=== PATIENT | male | born 1960 | race Caucasian/White ===

== ENCOUNTER 2023-02-16 06:21 | Inpatient (IN) | payer OTHER, SELFPAY ==
[2023-02-09 08:03] VITALS: BMI 28.8
[2023-02-16] VITALS (14 sets, daily range): BP systolic 113–152; BP diastolic 71–95; PULSE 22–101; RESP 11–18; TEMP 36.2–37.6; O2SAT 94–147; BMI 28.8
[2023-02-16] MEDS: ACETAMINOPHEN 325 MG TABLET 975 MG PO (07:06)
[2023-02-16] MEDS: LACTATED RINGERS 1,000 ML 42 ML IV (07:06)
--- NOTE | 2023-02-16 07:12 | SUR.OPER ---
Prone on spine table, head in foam head support, padded chest and pelvic supports, gel pad at knees, lower legs supported by pillows; nipples, genitalia and toes free of pressure, arms secured on foam padded arm boards at <90 degrees abduction. Tape over blanket at thigh secured to table.
--- NOTE | 2023-02-16 07:45 | PM.PREOP ---
Pre-operative Note Interval Note History & Physical reviewed/Exam performed by Physician: Yes Changes to H&P: No
[2023-02-16] MEDS: CEFAZOLIN 2 GM/100 ML PREMIX 100 ML IV ×3 (08:10→23:48)
[2023-02-16] MEDS: BUPIVACAINE 0.25% (PF) 60 ML, EPINEPHrine 0.15 MG INJ (11:22)
[2023-02-16] MEDS: BUPIVACAINE LIPOSOME 266 MG/20 ML VIAL INJ (11:22)
--- NOTE | 2023-02-16 11:43 | DI.RAD.S_ITS ---
PROCEDURE: XR LUMBAR SPINE 2-3V INDICATIONS: L4-5, L5-S1 TLIF ROBOT TECHNIQUE: 2 intraoperative fluoroscopic images of the spine COMPARISON: None. FINDINGS: Two intraoperative fluoroscopic images of the spine demonstrate L4-S1 posterior fusion with bilateral transpedicular screws and interbody disc spacers at L4-5 and L5-S1. Please see operative report for details. IMPRESSION: Intraoperative fluoroscopic images of posterior fusion hardware of the lumbar spine. Please see operative report for details. Dictated by: Yared Norton M.D. on 02/16/2023 at 11:55 Approved by: Yared Norton M.D. on 02/16/2023 at 11:56
--- NOTE | 2023-02-16 11:43 | PM.OP.1 ---
Operative Date/Time/Diagnoses Date of procedure: 02/16/23 Time of procedure: 07:40 Pre-op diagnosis: 1. L4-5, L5-S1 spinal stenosis with neurogenic claudication 2. L4-5, L5-S1 epidural lipomatosis 3. L4-5, L5-S1 foraminal stenosis Post-op diagnosis: same Procedure & Clinicians Procedure: 1. L4-5, L5-S1 Postero-lateral and posterior interbody fusion 2. L4-5, L5-S1 interbody cage placement. 3. L4-5, L5-S1 decompressive laminectomy with bilateral facetecomies 4. L4-5, L5-S1 Posterior segmental instrumentation 5. Wallace of bone marrow from iliac crest 6. Utilization of microsurgical technique and operating microscope 7. Utilization of robotic assisted navigation Same procedure as scheduled: Yes Indications: Patient has been having chronic back pain and worsening lumbar radiculopathy and symptoms of neurogenic claudication. Patient has severe central and neural foraminal stenosis with radiculopathy as well as symptoms of neurogenic claudication. Patient failed multiple conservative management with worsening pain weakness and numbness in his lower extremity. Patient has been having difficulty performing activity of daily living. After discussing risks benefits of treatment options, patient elected proceed with surgery. Surgeon: Carmelo Osorio Chief Vendor Quality: Kati Issa Click Yes if Unassisted: No Anesthesia Type: General Operative Notes Closure Type: primary Specimen(s): none sent Prosthetic devices, grafts, tissues, transplants, or devices: Globus CREO MIS screws, Rise cages Applied: catheter Estimated Blood Loss (mL): 150 Blood products transfused: none Procedure in detail: Patient was seen in the preoperative area. Risks and benefits of the surgery was discussed with the patient. Informed consent was obtained from the patient and placed in the chart. Surgical site was marked. Patient was taken to the operative room. General anesthesia was administered. Prophylactic antibiotic was given to the patient less than 30 min before the incision was made. Patient was placed into a prone position on the [place] table. Patient's back was then prepped and draped in the sterile fashion. Time-out was performed at this time. After patient was prepped and draped, patient's PSIS was palpated and marked bilaterally. Small 1 cm incision was made over the PSIS for placement of the reference probes. Two trocar was placed into the PSIS 1 on each side. The reference probe was attached to the trocar of the reference apparatus. At this time the C-arm imaging was used to confirm AP and lateral of L4-L5, L5-S1 vertebrae and merged the C-arm imaging using the RecruitTalk robotic navigation system with the CT of the lumbar spine. After successful merging was completed and confirmed, skin marker was used to ghulam out the skin incision using the RecruitTalk robotic arm. Bilateral incision was made at this time. Pre templated trajectory was used and guided using the Rec[employer]Talk robotic navigation system for bilateral L4, L5, S1 pedicle screw placement. This was done by using the robotic arm to guide the high-speed bur to make a cortical entry point. Next a drill was placed also using the robotic arm and guided using the navigation system drilling partially through bilateral L4, L5 and S1 pedicles. Next L4, L5, S1 pedicle screws it was pre templated and measured was placed onto the power corporate driver and inserted into the pedicles bilaterally. After all 6 screws were placed C-arm imaging was taken of both AP and lateral to confirm the placement. Excellent placement of the screws were confirmed and a matched precisely with the pre planned screw placement using the navigation system. MARs retractor was inserted using CyberPatrolivation guidence. Globus MARS retractors was placed inside the incision and docked onto the L4 and L5 lamina. Using microsurgical technique and operating microscope, a L4, L5 laminectomy and L4-5, L5-S1 facetectomy was performed using a Kerrison rongeur. The laminectomy and facetectomy was performed in order to decompress patient's cauda equina as well as the nerve roots exiting at the L4-5, L5-S1 level. Patient was found have severe lateral recess and neural foramen stenosis which was fully decompressed after the laminectomy facetectomy. More than 75% of the facets were removed during the process of decompression rendering L4-5, L5-S1 level grossly unstable and required a fusion procedure at the same time. The disc space at L4-5, L5-S1 was identified, and a total diskectomy was performed at L4-5, L5-S1 level. The endplates were decorticated using a rasp and shaver. The total diskectomy and decortication was performed at L4-5, L5-S1 level in order to to accomplish a L4-5, L5-S1 fusion. The local bone from the laminectomy and facetectomy was saved for local bone grafting. After the total diskectomy and decortication was completed, DBM bone graft material was combined with local bone that was harvested earlier. Patient was also found to have significant amount of epidural lipomatosis at both L4-5 and L5-S1 level further contributing to the severe central stenosis. Epidural lipomatosis was carefully resected to further decompress the epidural space. At this time, a separate skin is incision was made over the iliac crest. A Jamshidi needle was inserted into the iliac crest through a separate skin incision. 5 cc of bone marrow aspiration was obtained through the separate skin incision using a Jamshidi needle from the iliac crest. The bone marrow aspiration was combined with local bone and the DBM bone grafting material. The bone grafting material was placed into the L4-5, L5-S1 interbody space along with a expandable cage. The cage was expanded to its maximum height using the torque limiting screwdriver. The disc preparation as well as the cage insertion were also performed under navigation guidance. After the cage was placed, AP and lateral C-arm imaging was taken to confirm placement of the cage and excellent position was confirmed. Globus MARS retractor was inserted and docked onto the L4-5, L5-S1 posterolateral gutter on the right side. Using the power drill, posterior-lateral decortication was performed at L4-5, L5-S1 level until bleeding cortical bone was identified. The remaining bone grafting material was placed into the L4-5, L5-S1 posterior lateral gutter he order to accomplish posterolateral fusion at the L4-5, L5-S1 level. At this time the tulips were attached to the L4, L5, S1 pedicle screw shanks. After measuring the length of the rods, they were inserted into the tulips of the pedicle screws and locked in place using locking caps and torque limiting screwdriver bilaterally. Total 6 caps and 2 titanium rods was used in order to complete the posterior instrumentation construct. After all the hardware was placed, and confirmed with AP and lateral C-arm imaging, the wound was then irrigated with sterile normal saline and packed with Ray-Ted gauze for 3 min to accomplish hemostasis. After the gauze was removed the deep fascia was closed with #1 Vicryl suture. The subcutaneous layer was closed with 2-0 Vicryl. The skin was closed with skin pj. Patient tolerated the procedure well. There were no complications. Neuro monitoring system was used to monitor patient's neurologic status throughout entire procedure. There was no disturbance of the neural monitoring signals throughout the case. The Operation could not have been safely performed without compromising the technical result or length of the procedure, without the assistance of a skilled certified physician's assistant. The certified physician's assistant was medically necessary for proper positioning, retraction and manipulation of instruments, proper exposure, surgical preparation, and manipulation of tissue. Complications: none Post-operative Condition: stable Disposition: PACU Plan for aftercare: Admit to inpatient hospital
[2023-02-16] MEDS: ONDANSETRON 4 MG/2 ML INJ IV (11:58)
[2023-02-16] MEDS: OXYCODONE IR 5 MG TABLET PO (11:58)
[2023-02-16] MEDS: hydrOXYzine 50 MG/ML INJ 25 MG IM (11:59)
[2023-02-16] MEDS: HYDROMORPHONE 1 MG INJ IV ×2 (11:59→12:09)
[2023-02-16] MEDS: LACTATED RINGERS 1,000 ML 125 ML IV ×2 (12:47→22:30)
--- NOTE | 2023-02-16 13:40 | PT.IIE ---
Current Diagnoses Spondylolisthesis, lumbar region (02/16/23) Spinal stenosis, lumbar region with neurogenic claudication (02/16/23) Surgery Performed Operation Date: 02/16/23 07:45 Actual Procedures p L4-5, L5-S1 TLIF with posterior instrumentation-Robot - Carmelo Osroio MD Surgical History (Last Updated 02/09/23 @ 09:17 by Cici Young, RN) H/O vasectomy (1995) History of carpal tunnel surgery of left wrist (2012) History of surgery (~1988) Hx of arthroscopy of right knee Hx of colonoscopy (12/2022) Hx of foot surgery Hx of repair of right rotator cuff (2014) Hx of right knee surgery (1988) Hx of thumb surgery (1993) S/P epidural steroid injection Medical History (Last Updated 02/09/23 @ 09:23 by Cici Young RN) BCC (basal cell carcinoma) (2020) Bilateral cataracts Fatty liver History of COVID-19 (03/2022) HLD (hyperlipidemia) HTN (hypertension) ANTHONY on CPAP Right carpal tunnel syndrome Sciatica Physical Therapy Inpatient Evaluation/Re-Eval M1 PT/OT-IP Prior Functional Status Start: 02/16/23 14:29 Freq: NEEDED Status: Active Protocol: Document 02/16/23 13:40 AB (Rec: 02/16/23 14:43 AB [id number]) Medical Review Prior Functional Status Medical History Reviewed Yes Communication able to make needs known Mobility and Gait pt stated that he is independent with all mobilities and ambulation without AD Social History Household Members spouse Living Arrangements Apartment/Condo Number of Floors (Floors) One Floor Number of Stairs To Enter/Railing? 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 PT-IP Current Condition Start: 02/16/23 14:29 Freq: NEEDED Status: Active Protocol: Document 02/16/23 13:40 AB (Rec: 02/16/23 14:43 AB [id number]) Physical Therapy Current Condition Current Condition Evaluation Date 02/16/23 Treatment Diagnosis s/p L4-5, L5S1 TLIF; difficulty in walking Onset Date 02/16/23 M3 PT-IP Subjective Start: 02/16/23 14:29 Freq: NEEDED Status: Active Protocol: Document 02/16/23 13:40 AB (Rec: 02/16/23 14:43 AB [id number]) Subjective Physical Therapy Visit Type Type Initial Evaluation Visit Start Time 13:40 Visit Stop Time 14:25 Total Visit Minutes 45 Number of FRONT COUNTER CLERK Visits 0 Physical Therapy Visit Comments Patient Comments agreeable to do PT Therapy Pain Assessment Pain When Pain Assessed At Rest Pain Present Pain Present Pain Reported Location lower back Intensity 4 Scale Used Numeric (0 - 10) Pain Management Techniques Distraction,Modification of Treatment,Re-positioning M4 PT-IP Mobility and Gait Start: 02/16/23 14:29 Freq: NEEDED Status: Active Protocol: Document 02/16/23 13:40 AB (Rec: 02/16/23 14:43 AB [id number]) PT-Bed Mobility Assessment Rolling Type of Rolling Log Rolling Level of Assist Standby Assistance Supine to Sit Supine to Sit Contact Guard Assistance Sit to Supine Sit to Supine Minimal Assistance,1 Person Assistance PT-Transfer Assessment Sit to and From Stand Sit to and from Stand Moderate Assistance,Maximum Assistance,1 Person Assistance ,Use of Upper Extremities Equipment Transfer Assistive Device Gait Belt,Front Wheeled Walker Orthotic/Prosthetic Devices or Brace: No Transfer Ability Level of Assist Moderate Assistance,Maximum Assistance,1 Person Assistance ,Use of Upper Extremities Comments Mobility Comments pt supine in bed. spouse in room with pt. BP in supine: 133/78. pt provided with post -op folder and reviewed contents. educated on back precautions and log roll bed mobility. pt completed supine to sit CGA and cues for techniques. pt able to sit on EOB SBA. c/o feeling foggy /groggy. Bp checked in sittin/80. completed sit to stand max A and max cues. ambulated in room using fWW ~ 18 ft mod to max A and max cues. presents with decrease LE elevation during ambulation. pt sat back on EOB and requested to go back to bed. educated pt on sit<> stand techniques. completed sit <>stand from EOB mod to max A and max cues. assisted pt back to bed. completed sit to supine log roll min A and max cues. positioned pt in bed. call light and table placed within reach. caregiver training set up for tomorrow at 9 am. Gait Assessment Gait Gait Assistance Required: Moderate Assistance,Maximum Assistance,1 Person Assist Distance (Feet) 18 Able to Maintain Weight Bearing Status Yes During Gait Assistive Devices Assistive Device Gait Belt,Front Wheeled Walker Orthotic/Prosthetic Devices or Brace: No Gait Deviations General Gait Pattern Decreased Stride Length, Decreased Feet Clearance,Step- to Gait Factors Limiting Gait Function Factors Limiting Gait Function Decreased Activity Tolerance, Decreased Strength,Limited Range of Motion,Pain,Poor Balance,Poor Safety Awareness PT-Balance Assessment Sitting Balance and Reactions Static Sitting Balance Ability Good Dynamic Sitting Balance Ability Good Standing Balance and Reactions Static Standing Balance Ability Fair Dynamic Standing Balance Ability Fair Device Used FWW M5 PT-IP Objective Assessments Start: 02/16/23 14:29 Freq: NEEDED Status: Active Protocol: Document 02/16/23 13:40 AB (Rec: 02/16/23 14:43 AB [id number]) Orientation Orientation/Cognition Level of Alertness Alert Orientation Name,Place,Situation Language Function Ability No Deficits Noted Safety Awareness Decreased Safety Awareness Memory Description Short Term Impaired Gross Range of Motion Lower Extremity ROM Assessment Within Functional Limits Strength Lower Extremity Strength Assessment Within Functional Limits Muscle Tone Muscle Tone WNL Yes M6 PT-IP Treatment Start: 02/16/23 14:29 Freq: NEEDED Status: Active Protocol: Document 02/16/23 13:40 AB (Rec: 02/16/23 14:43 AB [id number]) Physical Therapy Treatment Education Education Provided Precautions,Weight Bearing Status,Post-Op Packet,Safety M7 PT-IP Assessment and Plan Start: 02/16/23 14:29 Freq: NEEDED Status: Active Protocol: Document 02/16/23 13:40 AB (Rec: 02/16/23 14:43 AB [id number]) PT Summary Assessment and Plan Potential Rehabilitation Potential Fair Status of Condition at Evaluation Evolving Summary Impairments Pain,ROM,Strength,Balance, Coordination,Sensation,Tone, Cognition,Bed Mobility, Transfers,Gait,Activity Tolerance Assessment Summary pt is a 62 y/o M who underwent L4-5, L5S1 TLIF POD 0. pt requiring min A with bed mobility and mod to max A with all mobilities and ambulation using FWW. caregiver training set up for tomorrow at 9am. pt plans to go home and spouse to assist him. pt also has to complete stair climbing prior to d/c as pt has 5 steps to enter the house . will continue to assess progress. Goals Bed Mobility Goal Independent Transfer Goal Independent,Front Wheeled Walker Gait Goal Independent,Front Wheel Walker Gait Distance 200 Other Goals up/down 5 steps 1 rail SBA Days to Meet Goals 5 Frequency of Treatment Frequency Of Treatment Twice a Day Treatment Plan Physical Therapy Treatment Plan Bed Mobility Training,Transfer Training,Gait Training, Therapeutic Exercise,Balance Retraining,Post Op Education, Discharge Planning,Hot or Cold Pack,Neuromuscular Re-ed, Coordination Retraining,Manual Therapy Other Recommendations and Next Treatment caregiver training 02/17 @ 9 Focus am Precautions Lumbar Precautions Log Roll,No Twisting,Limit Bending,Lifting Restriction of 10 lbs,Gait Belt above Incisional Area Recommendations To Nursing Amount of Assist Needed 1 Person Assist Discharge Recommendations PT Discharge Recommendations Home with Assistance Transportation Needs at Discharge Private Vehicle
--- NOTE | 2023-02-16 16:55 | OT.IP.EVAL ---
Current Diagnoses Spondylolisthesis, lumbar region (02/16/23) Spinal stenosis, lumbar region with neurogenic claudication (02/16/23) Surgery Performed Operation Date: 02/16/23 07:45 Actual Procedures p L4-5, L5-S1 TLIF with posterior instrumentation-Robot - Carmelo Osorio MD Past Medical History (Last Updated 02/09/23 @ 09:23 by Cici Young, RN) BCC (basal cell carcinoma) (2020) Bilateral cataracts Fatty liver History of COVID-19 (03/2022) HLD (hyperlipidemia) HTN (hypertension) ANTHONY on CPAP Right carpal tunnel syndrome Sciatica Surgical History (Last Updated 02/09/23 @ 09:17 by Cici Young RN) H/O vasectomy (1995) History of carpal tunnel surgery of left wrist (2012) History of surgery (~1988) Hx of arthroscopy of right knee Hx of colonoscopy (12/2022) Hx of foot surgery Hx of repair of right rotator cuff (2014) Hx of right knee surgery (1988) Hx of thumb surgery (1993) S/P epidural steroid injection Occupational Therapy Inpatient Evaluation/Re-Eval M1 PT/OT-IP Prior Functional Status Start: 02/16/23 16:56 Freq: NEEDED Status: Active Protocol: Document 02/16/23 16:57 [facility] (Rec: 02/16/23 17:03 [facility] [id number]) Medical Review Prior Functional Status Medical History Reviewed Yes Communication able to make needs known Mobility and Gait pt stated that he is independent with all mobilities and ambulation without AD Activities of Daily Living and IADL's Independent with ADL and IADl but had pain. Social History Household Members spouse Living Arrangements Apartment/Condo Number of Floors (Floors) One Floor Number of Stairs To Enter/Railing? 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 Current Condition Start: 02/16/23 16:56 Freq: Status: Active Protocol: Document 02/16/23 16:57 [facility] (Rec: 02/16/23 17:03 [facility] [id number]) Occupational Therapy Current Condition Current Condition Evaluation Date 02/16/23 Treatment Diagnosis S/P L4-5, L5-S1 TLIF Post Operative Precautions Lumbar Precautions Log Roll,No Twisting,Limit Bending,Lifting Restriction of 10 lbs,Gait Belt above Incisional Area M3 OT- IP Subjective and Pain Start: 02/16/23 16:56 Freq: Status: Active Protocol: Document 02/16/23 16:57 [facility] (Rec: 02/16/23 17:03 [facility] [id number]) OT- Subjective Occupational Therapy Visit Type Type Initial Evaluation Visit Start Time 16:30 Visit Stop Time 16:55 Total Visit Minutes 25 Occupational Therapy Visit Comments Patient Comments Pt agreed to get up. Patient/Caregiver Goals To go home. OT Pain Assessment Pain When Pain Assessed During Mobility Pain Present Pain Present Pain Reported Location lower back Intensity 5 M4 OT- IP ADL's Start: 02/16/23 16:56 Freq: Status: Active Protocol: Document 02/16/23 16:57 [facility] (Rec: 02/16/23 17:03 [facility] [id number]) OT LPL-Devv-[id number] General Evaluation Self-Feeding Ability Independent OT ADL-Grooming General Evaluation Grooming Ability Independent OT ADL-Oral Care Comments Oral Care Comments Educated to spit into a cup or hinge at his hips to best follow his back precautions. OT ADL-Dressing Comments OT Dressing Comments Pt aware of LB dressing equipment and just have his assist for now. OT ADL-Toileting General Evaluation Toileting Ability Total Assistance Comments OT Toileting Comments Rivera in place. OT ADL-Bathing Comments OT Bathing Comments Pt would benefit from a shower chair and HHPS. M5 OT- IP IADL's Start: 02/16/23 16:56 Freq: Status: Active Protocol: Document 02/16/23 16:57 [facility] (Rec: 02/16/23 17:03 [facility] [id number]) OT-Instrumental Activities of Daily Living Deficits IADL Deficits Identified Deficits Home Safety Awareness Awareness of Need for Assistance at Home Good Awareness Ability to Problem Solve Emergency Able to Problem Solve Situations Home Safety Comments Pt's to assist for his needs. M6 OT- IP Functional Cognition Start: 02/16/23 16:56 Freq: Status: Active Protocol: Document 02/16/23 16:57 [facility] (Rec: 02/16/23 17:03 [facility] [id number]) Cognitive Factors Limiting Selfcare Function Cognitive Ability Level of Alertness Alert Patient Orientation Name,Age,Birthday,Month,Date, Year,Day of Week,Place, Situation Attention Span Ability Capable of Focused Attention, Capable of Sustained Attention Ability to Follow Commands Able to Follow Multi-Step Commands Cognitive Comments Cognitive Assessment Comments Intact OT- Vision and Hearing OT- Hearing Assessment OT- Hearing Assessment WFL M7 OT- IP Mobility and Balance Start: 02/16/23 16:56 Freq: Status: Active Protocol: Document 02/16/23 16:57 [facility] (Rec: 02/16/23 17:03 [facility] [id number]) OT- Bed Mobility Assessment Supine to Sit Supine to Sit Assist Standby Assistance OT-Transfer Assessment Sit to and From Stand Sit to and from Stand Standby Assistance Technique Transfer Destination Bed,Chair Devices Transfer Assistive Devices Gait Belt,Front Wheeled Walker OT- Balance Assessment Sitting Balance and Reactions Static Sitting Balance Ability Normal Dynamic Sitting Balance Ability Good Standing Balance and Reactions Static Standing Balance Ability Good Dynamic Standing Balance Ability Good M9 OT- IP Assessment and Plan Start: 02/16/23 16:56 Freq: Status: Active Protocol: Document 02/16/23 16:57 [facility] (Rec: 02/16/23 17:03 [facility] [id number]) OT Summary Assessment and Plan Potential Rehabilitation Potential Excellent Analytic Complexity at Evaluation Low Summary OT Impairments Pain,Balance,Functional Mobility,Dressing,Toileting, Bathing,Toilet Transfers, Shower Transfers Progress Towards Goals Progressing Toward Goals Assessment Summary Py low complexity and main barriers are pain, showering and will need assist for LB dressing form his . Pt to go home when medically stable. Suggested use of urinal at home and his able to hold the FWW in place next to the bed to assist to get up if needed. Goals Dressing Goal Independent Toileting Goal Independent Bathing Goal Independent Toilet Transfer Goal Independent Shower Transfer Goal Independent Days to Meet Goals 5 Frequency of Treatment Frequency Of Treatment Once a Day Treatment Plan OT Treatment Plan ADL Training,Functional Mobility,Patient/Family Education,Discharge Planning Discharge Recommendations OT Discharge Recommendations Home with Assistance Home Equipment Needs Shower chair, HHSP Transportation Needs at Discharge Private Vehicle
[2023-02-16] MEDS: ACETAMINOPHEN 325 MG TABLET 650 MG PO ×2 (16:56→22:33)
[2023-02-16] MEDS: TAMSULOSIN 0.4 MG CAPSULE PO (20:09)
[2023-02-16] MEDS: ZOLPIDEM 5 MG TABLET PO (20:09)
[2023-02-16] MEDS: DOCUSATE 100 MG CAPSULE PO (20:09)
[2023-02-16] MEDS: ATORVASTATIN 20 MG TABLET 40 MG PO (20:09)
[2023-02-16] MEDS: OXYCODONE IR 10 MG TABLET PO (20:09)
[2023-02-16] MEDS: SENNOSIDES 8.6 MG TABLET 17.2 MG PO (20:09)
[2023-02-17 00:49] VITALS: BP 116/68; PULSE 68; RESP 18; TEMP 37; O2SAT 100
[2023-02-17 04:15] VITALS: BP 119/64; PULSE 72; RESP 18; TEMP 37.8; O2SAT 100
[2023-02-17] MEDS: OXYCODONE IR 10 MG TABLET PO ×3 (04:27→11:15)
[2023-02-17] MEDS: ACETAMINOPHEN 325 MG TABLET 650 MG PO ×2 (04:27→10:56)
[2023-02-17 05:13] LABS: Hematocrit 31.1 % (41-53); Hemoglobin 11.2 g/dL (13.5-17.5)
[2023-02-17] MEDS: LACTATED RINGERS 1,000 ML 125 ML IV (06:52)
[2023-02-17 07:00] VITALS: TEMP 37.6
[2023-02-17] MEDS: polyethylene glycoL 3350 17 GM POWD.PACK PO (08:33)
[2023-02-17] MEDS: lisinopriL 20 MG TABLET 40 MG PO (08:33)
[2023-02-17] MEDS: DOCUSATE 100 MG CAPSULE PO (08:33)
[2023-02-17 08:41] VITALS: BP 126/68; PULSE 66; RESP 16; TEMP 37.2; O2SAT 99
--- NOTE | 2023-02-17 09:00 | PT.IPTN ---
Current Diagnoses Spondylolisthesis, lumbar region (02/16/23) Spinal stenosis, lumbar region with neurogenic claudication (02/16/23) Surgery Performed Operation Date: 02/16/23 07:45 Actual Procedures p L4-5, L5-S1 TLIF with posterior instrumentation-Robot - Carmelo Osorio MD Physical Therapy Treatment Note M2 PT-IP Current Condition Start: 02/16/23 14:29 Freq: NEEDED Status: Active Protocol: Document 02/16/23 13:40 AB (Rec: 02/16/23 14:43 AB [id number]) Physical Therapy Current Condition Current Condition Evaluation Date 02/16/23 Treatment Diagnosis s/p L4-5, L5S1 TLIF; difficulty in walking Onset Date 02/16/23 M3 PT-IP Subjective Start: 02/16/23 14:29 Freq: NEEDED Status: Active Protocol: Document 02/17/23 09:20 TS (Rec: 02/17/23 09:34 TS [id number]) Subjective Physical Therapy Visit Type Type Treatment Note Visit Start Time 09:00 Visit Stop Time 09:18 Total Visit Minutes 18 Number of WAREHOUSE INCENTIVE SELECTOR Visits 1 Physical Therapy Visit Comments Patient Comments Pt found resting in chair, spouse present for caregiver training, reports some pain in LLE and numbness in RLE, pt agreeable to PT. Therapy Pain Assessment Pain When Pain Assessed During Mobility Pain Present Pain Present Pain Reported M4 PT-IP Mobility and Gait Start: 02/16/23 14:29 Freq: NEEDED Status: Active Protocol: Document 02/17/23 09:20 TS (Rec: 02/17/23 09:34 TS [id number]) PT-Bed Mobility Assessment Rolling Type of Rolling Log Rolling Level of Assist Standby Assistance Sit to Supine Sit to Supine Contact Guard Assistance,1 Person Assistance PT-Transfer Assessment Sit to and From Stand Sit to and from Stand Standby Assistance,Use of Upper Extremities Equipment Transfer Assistive Device Gait Belt,Front Wheeled Walker Orthotic/Prosthetic Devices or Brace: No Comments Mobility Comments Spouse instructed in and performed donning of gait belt prior to mobility. He recalled 3/3 spinal precautions. He performed sit to stand SBA with FWW, demonstrated good standing balance with no retroleaning. He ambulated in hallway ~200' SBA, reported some weakness, had no buckling or LOB. He performed stairs x6 CGA step to step with B handrails, spouse instructed in and peformed step sequencing with pt. He ambulated back to room, sit to supine into bed CGA for LEs, demonstrated good carryove of logroll sequencing . Pt was left in bed all needs met, spouse in room, RN notified. Gait Assessment Gait Gait Assistance Required: Standby Assistance Distance (Feet) 200 Able to Maintain Weight Bearing Status Yes During Gait Assistive Devices Assistive Device Gait Belt,Front Wheeled Walker Orthotic/Prosthetic Devices or Brace: No Gait Deviations General Gait Pattern Decreased Stride Length, Decreased Feet Clearance,Step- to Gait Factors Limiting Gait Function Factors Limiting Gait Function Decreased Activity Tolerance, Decreased Strength,Limited Range of Motion,Pain,Poor Balance,Poor Safety Awareness Comments Gait Comments See mobility comments. Stair Climbing Assessment Evaluation Level of Assist On Stairs Contact Guard Assistance,1 Person Assistance Devices Stair Climbing Assistive Devices Right Railing Technique/Endurance Stair Climbing Direction Ascend and Descend Stair Climbing Technique Step to Step Number of Steps Climbed 6 Comments Stair Climbing Comments See mobility comments. PT-Balance Assessment Sitting Balance and Reactions Static Sitting Balance Ability Good Dynamic Sitting Balance Ability Good Standing Balance and Reactions Static Standing Balance Ability Good Dynamic Standing Balance Ability Good Device Used FWW M5 PT-IP Objective Assessments Start: 02/16/23 14:29 Freq: NEEDED Status: Active Protocol: Document 02/16/23 13:40 AB (Rec: 02/16/23 14:43 AB [id number]) Orientation Orientation/Cognition Level of Alertness Alert Orientation Name,Place,Situation Language Function Ability No Deficits Noted Safety Awareness Decreased Safety Awareness Memory Description Short Term Impaired Gross Range of Motion Lower Extremity ROM Assessment Within Functional Limits Strength Lower Extremity Strength Assessment Within Functional Limits Muscle Tone Muscle Tone WNL Yes M6 PT-IP Treatment Start: 02/16/23 14:29 Freq: NEEDED Status: Active Protocol: Document 02/17/23 09:20 TS (Rec: 02/17/23 09:34 TS [id number]) Physical Therapy Treatment Education Education Provided Precautions,Weight Bearing Status,Post-Op Packet,Safety M7 PT-IP Assessment and Plan Start: 02/16/23 14:29 Freq: NEEDED Status: Active Protocol: Document 02/17/23 09:20 TS (Rec: 02/17/23 09:34 TS [id number]) PT Summary Assessment and Plan Potential Rehabilitation Potential Good Summary Impairments Pain,ROM,Strength,Balance, Coordination,Sensation,Tone, Cognition,Bed Mobility, Transfers,Gait,Activity Tolerance Progress Towards Goals Progressing Toward Goals Assessment Summary Mikael is making good progress with his mobility this session . He progressed his sit to stand to SBA with BUE support and use of FWW. He progressed his gait to SBA with FWW ~200' with no buckling or LOB. He performed stairs with spouse CGA x6 with R rail. Spouse was instructed in and performed donning of gait belt, stair training and handplacement on gait belt for mobility. PT is recommending return home with assist from spouse. Goals Bed Mobility Goal Independent Transfer Goal Independent,Front Wheeled Walker Gait Goal Independent,Front Wheel Walker Gait Distance 200 Other Goals up/down 5 steps 1 rail SBA Days to Meet Goals 5 Frequency of Treatment Frequency Of Treatment Twice a Day Treatment Plan Physical Therapy Treatment Plan Bed Mobility Training,Transfer Training,Gait Training, Therapeutic Exercise,Balance Retraining,Post Op Education, Discharge Planning,Hot or Cold Pack,Neuromuscular Re-ed, Coordination Retraining,Manual Therapy Precautions Lumbar Precautions Log Roll,No Twisting,Limit Bending,Lifting Restriction of 10 lbs,Gait Belt above Incisional Area Recommendations To Nursing Amount of Assist Needed 1 Person Assist Discharge Recommendations PT Discharge Recommendations Home with Assistance Transportation Needs at Discharge Private Vehicle
--- NOTE | 2023-02-17 09:32 | PM.DS.1 ---
History of Present Illness History of Present Illness Date Patient Seen: 02/17/23 Time Patient Seen: 08:45 Chief complaint: Translam Intrbody Fus./Laminotomy -Robot 02/16 Narrative: Date of procedure: 02/16/23 Time of procedure: 07:40 Pre-op diagnosis: 1. L4-5, L5-S1 spinal stenosis with neurogenic claudication 2. L4-5, L5-S1 epidural lipomatosis 3. L4-5, L5-S1 foraminal stenosis Post-op diagnosis: same Procedure & Clinicians Procedure: 1. L4-5, L5-S1 Postero-lateral and posterior interbody fusion 2. L4-5, L5-S1 interbody cage placement. 3. L4-5, L5-S1 decompressive laminectomy with bilateral facetecomies 4. L4-5, L5-S1 Posterior segmental instrumentation 5. Mckinney of bone marrow from iliac crest 6. Utilization of microsurgical technique and operating microscope 7. Utilization of robotic assisted navigation Same procedure as scheduled: Yes Indications: Patient has been having chronic back pain and worsening lumbar radiculopathy and symptoms of neurogenic claudication. Patient has severe central and neural foraminal stenosis with radiculopathy as well as symptoms of neurogenic claudication. Patient failed multiple conservative management with worsening pain weakness and numbness in his lower extremity. Patient has been having difficulty performing activity of daily living. After discussing risks benefits of treatment options, patient elected proceed with surgery. Surgeon: Carmelo Osorio Human Resources Compensation Analyst: Kati Issa Click Yes if Unassisted: No Anesthesia Type: General Discharge Providers Provider Date of admission: 02/16/23 06:21 Discharge Date: 02/17/23 Primary care physician: Ciaran Mcgraw MD Consults: 02/16/23 12:24 Consult to Occupational Therapy Evaluate & Treat Comment: Physician Instructions: Evaluate and treat Consult to Physical Therapy Evaluate & Treat Comment: Physician Instructions: Evaluate and Treat Discharge provider: Raffi Lopez PA-C Summary Hospital Course Discharge Diagnosis: 1. L4-5, L5-S1 spinal stenosis with neurogenic claudication 2. L4-5, L5-S1 epidural lipomatosis 3. L4-5, L5-S1 foraminal stenosis 4. Post-Op Spinal fusion Status at Discharge Cognitive/behavioral status at discharge: oriented Functional status at discharge: uses cane/walker Exam Vital Signs (past 8 hours): - 02/17/23 04:15 02/17/23 07:00 02/17/23 08:41 Temperature 100.0 F H 99.6 F 99 F Pulse Rate 72 66 Respiratory Rate 18 16 Blood Pressure 119/64 126/68 Pulse Oximetry 100 99 Oxygen Flow Rate 0 0 Oxygen Delivery Method Room Air Oxygen Flow Rate 0 Const General: cooperative and comfortable Nutritional Appearance: average body habitus Orientation: alert and oriented x3 Resp Effort & Inspection: normal respiratory effort and able to speak in complete sentences Extrem Other: 5/5 strength in hip flexors, quadriceps, hamstrings, DF, PF, EHL bilaterally. Sensation to light touch intact throughout BLE. Calves soft, compressible, nontender. Complaints of decreased sensation along the L4 dermatome of right leg. Increased pain and tingling down left leg, but no loss of sensation Objective Labs 02/17/23 04:57 Labs: Laboratory Results - last 24 hr 02/17/23 04:57 Hgb 11.2 L Hct 31.1 L PFSH Medical History (Updated 02/09/23 @ 09:23 by Cici Young RN) History of COVID-19 (03/2022) BCC (basal cell carcinoma) (2020) Fatty liver HLD (hyperlipidemia) HTN (hypertension) ANTHONY on CPAP Bilateral cataracts Right carpal tunnel syndrome Sciatica Surgical History (Updated 02/09/23 @ 09:17 by Cici Young RN) History of surgery (~1988) S/P epidural steroid injection Hx of foot surgery Hx of arthroscopy of right knee Hx of right knee surgery (1988) Hx of thumb surgery (1993) History of carpal tunnel surgery of left wrist (2012) Hx of repair of right rotator cuff (2014) H/O vasectomy (1995) Hx of colonoscopy (12/2022) Social History household members: spouse Smoking Status: Former smoker alcohol intake: current Discharge Assessment & Plan Assessment and Plan Assessment: S/p Lumbar Fusion Plan of Treatment: Discharge home pending PT approval. Follow up in office on 02/27/2023 Discharge Plan Discharge Plan Patient Disposition: Home Discharge orders & Medications Prescriptions: New acetaminophen 325 mg tablet 650 mg PO Q6H PRN (Reason: pain (scale score 1-3)) Qty: 60 0RF docusate sodium 100 mg capsule 100 mg PO BID Qty: 20 0RF oxycodone 10 mg tablet 10 mg PO Q4H PRN (Reason: pain (scale score 7-10)) Qty: 40 0RF Continued tamsulosin 0.4 mg Capsule 0.4 mg PO BEDTIME lisinopril 40 mg Tablet 40 mg PO DAILY rosuvastatin 20 mg Tablet 20 mg PO BEDTIME zolpidem 12.5 mg Tablet,Ext Release Multiphase 12.5 mg PO BEDTIME Discontinued acetaminophen 650 mg Tablet Extended Release 1,300 mg PO Q8H ibuprofen 200 mg Tablet 800 mg PO BID PRN (Reason: Pain) Follow up/Referrals: Ciaran Mcgraw MD [Primary Care Provider] - Carmelo Osorio MD [Physician] - 2 Weeks Diet/Activity/Treatments Diet: Diet as Tolerated Activity: No deep bending or twisting at the waist. No lifting more than 10 pounds. Cold/Heat Therapy: Heating pad to low back as needed for pain. Skin/Wound/Dressing Care Report to your healthcare provider any signs of infection, such as:: chills, fever, night sweats, unusual drainage and unusual redness Dressing: May shower. Keep dressing as dry as possible. If dressing becomes wet or dirty, remove and replace with clean, dry gauze. Visit Report/Discharge Packet Instructions: DI for Prescription Opioid Use, DI for Transforaminal Lumbar Interbody Fusion Stand Alone Forms: Patient Portal/API, Stroke Signs & Symptoms, Surgery Discharge Discharge Data Primary Care Provider: Ciaran Mcgraw Quality VTE Deep Vein Thrombosis/Pulmonary Embolism Present on Admission: No
--- NOTE | 2023-02-17 10:35 | CM.DANOTE ---
Reviewed EMR for pt's medical status and anticipated home d/c needs. Met with pt and at bedside, he was found to be alert, oriented, and preparing for d/c. Introduced self and role. Payor: Corinne Cain Medical Attending: Dr. Osorio Pt is a 62 year-old M admitted for lumbar fusion surgery. Per PT/OT eval recommendations, pt cg training has went well, plan is to d/c home today with 's continued support, OP f/u with Ortho. They share that they have all the home DME ready at home for safety/support. No further d/c needs identified at this time. Discharge Planning/Care Management CM Discharge Assessment Start: 02/17/23 10:33 Freq: Status: Active Protocol: Document 02/17/23 10:33 DPL (Rec: 02/17/23 10:35 DPL [id number]) Discharge Planning Assessment Assigned Software Asset Manager KIMBERLEY Arboleda Advance Directives? No History Provided By Patient,Family Member,Medical Record Prior Living Arrangements Apartment/Condo Household Members spouse Type of transporation used prior to Drives own vehicle admit Is patient alert and oriented? Yes Caregiver for Another No DME Already Rented / Owned Bath Bench,Elevated Toilet Seat,FWW / Walker Comment No anticipated d/c needs indicated at this time. Barriers to Discharge No Discharge Plan Home Community Services Physical Therapy Transportation Arrangement OP f/u with Ortho will determine the plan for continued therapies. Referrals Initiated None needed Review Status In Process Please Provide Date Initial DC 02/17/23 Assessment Was Performed Pre-Anesthesia Assessment Start: 02/09/23 08:03 Freq: Status: Complete Protocol: Document 02/09/23 08:03 [facility] (Rec: 02/09/23 09:28 CAB [id number]) Pre-Anesthesia Assessment Preferred Name Mikael Patient Information Reviewed Via Phone Assessment Assessment Completed With Patient Diagnostic Results BMP/CMP,CBC Comment Outside labs scanned Primary Care Provider Ciaran Mcgraw Seen Specialist in Last 12 Months Yes Specialist Seen Orthopedist Primary Language Danish Coin Machine Servicer Repairer Required No Height 175.26 cm Weight 88.451 kg Body Mass Index (BMI) 28.8 Hearing Ability Normal Visual Assist Contacts,Glasses Dentition Type Teeth, Natural Present Barriers to Learning None Other Aids No Hx Anesthesia Reactions No Hx Family Anesthesia Reaction No Hx Malignant Hyperthermia No Hx Blood Transfusions No Anesthesia Review Requested No Automobile Body Repair Chief No alcohol intake current alcohol intake frequency 0-2 drinks per day Smoking Status Former smoker how long ago did patient quit smoking Quit 1983 Substance Use Type does not use Pain Present Pain Reported Musculoskeletal Symptoms Abnormal Gait,Back Pain,Joint Pain,Muscle Weakness,Radiating Pain into Limb History of Falling (Recent or History of No ) Patient is completely paralyzed or No completely immobile Mental Status Oriented to own ability Is patient on oxygen? No Does patient have DESIR/SOB No Hx Sleep Apnea Yes CPAP/BIPAP use prescribed and used routinely Will Bring CPAP/BIPAP DOS Yes Currently Taking a Beta Brittney No Can You Climb a Flight of Stairs Without Yes SOB Hx Chest Pain No Hx SOB No Hx Syncope or Dizziness No Anti-Coagulant Therapy No Has a Scientific Informatics Project Leader No Cardiac Testing No Hx Pacemaker/ICD No Pacemaker Rep Required? No Cardiac Clearance Received Not Applicable Diet Type At Home Regular Dysphagia No Bladder Pattern Nocturia Urinary Catheter Present No Hx Urinary Self Catheterization No Diabetes No HgbA1C 5.4 Date 01/22/23 Hx Drug Resistant Organism No Presence of External or Internal Medical Yes: CPAP, screws in right Devices knee Received a COVID vaccine? Yes Received all doses? Yes Marital Status Lives With spouse Current Living Arrangements Apartment/Condo Number of Floors (Floors) One Floor Support System Spouse Does the Patient Have Assistance After Yes Surgery Patient Discharge Plan Description Return Home Comment Pt advised 1-2 night length of stay per surgeon Feels Safe in Current Environment Yes Been Physically Hurt or Threatened By a No Person in Current Environment Do you have thoughts of harming yourself None or others? Are you currently considering suicide? No Do you have a plan to hurt yourself or No Plan others? Do You Have Any Spiritual Beliefs That No May Affect Your HC Choices? Do You Have Any Cultural Practices That No May Affect Your HC Choices? Who Can We Speak to About Patient's Care Family, friends Identifying Code for Release of Patient Declines to issue Information Health Care Proxy/Next of Kin Jaki () Health Care Proxy Emergency Contact Name Jaki () Emergency Contact Advance Directives? No Power of Lead Custodian No PAC Instructions Bring CPAP/BIPAP,Durable medical equipment,Medications to take/avoid,Nasal antibiotic ,No ETOH/petroleum product on skin DOS,NPO,Pre-surgical wash ,Sensory aids,Sturdy shoes/ comfortable clothes,Do not bring valuables and remove jewelry
--- NOTE | 2023-02-17 11:57 | PC.NURSE ---
Day shift: Paperwork singed and all questions answered. Dressing changed prior to d/c as dressing was open in the middle. Plce 2 Coversites. Pt tolerated well. CMS intact. VS WNL. No nausea. Spouse in room for d/c teaching. Left unit via WC at 1200. Spouse is driving them home. scripts sent electronic.
== END 2023-02-17 11:59 | disposition home or self-care (01) | DRG 455 ==
PROVIDERS: Admitting Provider Orthopaedic Surgery Orthopaedic Surgery of the Spine; PCP Family Medicine Sports Medicine; Referring Provider Orthopaedic Surgery Orthopaedic Surgery of the Spine; Visit Provider Orthopaedic Surgery Orthopaedic Surgery of the Spine
PROC: 0SG00AJ Fusion of Lumbar Vertebral Joint with Interbody Fusion Device, Posterior Approach, Anterior Column, Open Approach (ICD-10-PCS; principal; 2023-02-16 07:45)
DX: M48.062 Spinal stenosis, lumbar region with neurogenic claudication (principal); E88.2 Lipomatosis, not elsewhere classified; M47.26 Other spondylosis with radiculopathy, lumbar region; M48.07 Spinal stenosis, lumbosacral region; E78.5 Hyperlipidemia, unspecified; I10 Essential (primary) hypertension; Z87.891 Personal history of nicotine dependence
CPT/HCPCS: 36415; 72100; 76000; 85014; 85018; 97162; 97165; 97530; 97535; S2900; C1831; C9290; J0171; J0330; J0690; J1100; J1170; J2405; J2704; J3010; J3410